=== PATIENT | female | born 1960 | race Caucasian/White ===

== ENCOUNTER 2025-11-09 13:12 | Outpatient (CLI) | payer MEDICARE, OTHER | END 2025-11-09 13:13 | disposition home or self-care (01) | LOC: CT 13:12 | PROVIDERS: ATTEND Internal Medicine Nephrology | DX: N18.4 Chronic kidney disease, stage 4 (severe) (principal); N20.0 Calculus of kidney; N28.1 Cyst of kidney, acquired; R16.0 Hepatomegaly, not elsewhere classified | CPT/HCPCS: 74150 ==